=== PATIENT | female | born 1995 | race Two or more races ===

== ENCOUNTER 2025-01-24 07:20 | Outpatient (CLI) | payer OTHER | END 2025-01-24 07:21 | disposition home or self-care (01) | LOC: PRENATAL 07:20 | PROVIDERS: ATTEND Obstetrics & Gynecology Maternal & Fetal Medicine | DX: O44.00 Complete placenta previa NOS or without hemorrhage, unspecified trimester (principal); Z3A.20 20 weeks gestation of pregnancy ==

== ENCOUNTER 2025-04-14 11:23 | Outpatient (CLI) | payer OTHER | END 2025-04-14 11:24 | disposition home or self-care (01) | LOC: PRENATAL 11:23 | PROVIDERS: ATTEND Obstetrics & Gynecology Maternal & Fetal Medicine | DX: O26.849 Uterine size-date discrepancy, unspecified trimester (principal); O36.8130 Decreased fetal movements, third trimester, not applicable or unspecified; Z3A.32 32 weeks gestation of pregnancy ==